=== PATIENT | male | born 1935 | race Caucasian/White ===

== ENCOUNTER 2019-07-01 05:05 | Day surgery (SDC) | payer MEDICARE, BC ==
[2019-06-30 16:40] LABS: BASOPHILS 0.4 % (0-2); EOSINOPHILS 5.6 % (0-7); HEMATOCRIT 42.2 % (42.0-54.0); IMMATURE GRANULOCYTES 0.2 % (0-5); LYMPHOCYTES 30.6 % (15-50); MCH 31.4 pg (26.0-34.0); MCHC 35.5 g/dL (31.0-37.0); MCV 88.3 fL (80.0-100.0); MEAN PLATELET VOLUME 10.6 fL (7.4-10.4); MONOCYTES 11.1 % (2-11); NEUTROPHILS 52.1 % (40-80); PLATELET COUNT 133 10x3/uL (130-400); RBC 4.78 10x6/uL (4.20-6.10); RDW 12.8 % (11.5-14.5); WBC 4.7 10x3/uL (4.8-10.8)
[2019-06-30 16:51] LABS: ANION GAP 14.8 mmol/L (8-16); CARBON DIOXIDE 25.5 mmol/L (21.0-32.0); CREATININE - SERUM 1.5 mg/dL (0.6-1.3); POTASSIUM - SERUM 4.3 mmol/L (3.5-5.1)
[~2019-07-01] VITALS: Ht 276.9 cm; Wt 90.7 kg
[~2019-07-01 05:05] MED LIST: COZAAR100 MG PO; FLOMAX0.4 MG PO; FOLIC ACID1 MG PO; NEURONTIN 300300 MG PO; NORVASC5 MG PO; OCCUVITE PO; PLAVIX75 MG PO; PROTONIX40 MG PO; THEREMS-M1 TAB PO; VITAMIN D31000 UNIT PO; ZOCOR10 MG PO; ZOLOFT50 MG PO
[2019-07-01 05:44] VITALS: BP 140/73; Ht 276.9 cm; Wt 90.7 kg
[2019-07-01] MEDS ORDERED: DURICEF500 MG PO (08:05)
[2019-07-01] MEDS ORDERED: HYDROCODON-ACE1 EAC7 PO (08:05)
--- NOTE | 2019-07-01 09:01 | NUR ---
[address] MULTIPLE FAMILY AT BEDSIDE. DR. JUAN HAS ROUNDED WITH FAMILY. COLA SERVED PER PT. REQUEST. ICE P ROVIDED. ELEVATED ON PILLOW. 0855 FL DIET SERVED.
--- NOTE | 2019-07-01 11:17 | OP ---
PATIENT NAME: DAMASO MORATAYA MEDICAL RECORD: [id number] :37 LOCATION:D.OPS ADMISSION DATE: SURGEON: HANS JUAN DO DATE OF OPERATION: 07/01/2019 PROCEDURE PERFORMED: Right endoscopic carpal tunnel release and right cubital tunnel release. 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 INDICATIONS: Mr. 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 He was having problems where he had numbness and tingling for quite some time and loss of feeling in his hand. He had a nerve conduction study, which showed very severe carpal tunnel and cubital tunnel with the ulnar nerve being pinched a little bit distal to the elbow. I informed him of the risk that we may not get the feeling back and the motor may not come back, but the pain should be resolved after the surgery. He is aware of those risks and signed the consent as well as the risks of infection, bleeding, damage to nerves and vessels, need for further surgery, continued pain and numbness. He signed the consent. SURGEON: Hans Juan DO DESCRIPTION OF PROCEDURE: The patient was taken to the operative suite, laid in supine position. I was assisted by Bryant Contreras, advanced nurse practitioner. The right upper extremity was prepped and draped in sterile fashion. The time-out was performed. Everyone was in agreement with correct side, site, patient and procedure. The Esmarch was then used to exsanguinate the right upper extremity. The tourniquet was inflated to 250 mmHg, it was up for 27 minutes. The endoscopic carpal tunnel was addressed first. A small incision was made at the wrist crease and blunt dissection was made after the initial incision with Ragnells down to the carpal tunnel. The fascia of the forearm was released from distal to proximal at that spot and then the carpal tunnel was entered with the dilators. The scope sheath was then put in and the transverse carpal ligament was seen, cleaned off with the probe and rasp and then the knife was brought in and raised up and transected the transverse carpal ligament. Pickup and scissors were then used to release any remaining fibers under loupe magnification. The cubital tunnel was then addressed. An incision was made at the elbow just posterior to the medial epicondyle. Careful dissection was made down to the incision on the skin, down to the ulnar nerve. This was dissected out both proximally and distally. It was seen to be pinched. It had an hourglass deformity noted at the head of the flexor carpi ulnaris and this was released. Once we got a good release, the tourniquet was let down. The site was injected with 0.5% Marcaine with epinephrine 10 mL there and 10 mL at the carpal tunnel site and any bleeding was coagulated with the bipolar at that time. The skin was then closed at the cubital tunnel with 3-0 Vicryl in an inverted interrupted fashion, 5-0 Monocryl ran on the skin and the carpal tunnel was closed with 5-0 Monocryl in an inverted interrupted fashion. Steri-Strips, Adaptic, 4 x 4's were then placed and cast padding was then wrapped and Wayne wrap from the fingers up to above the elbow. He was awakened and taken to recovery in stable condition. OPERATIVE REPORT [id number] DAMASO MORATAYA BLOOD LOSS: Minimal. COMPLICATIONS: None. TRANSINT:[id number] Voice Confirmation ID: [id number] DOCUMENT ID: [id number] HANS JUAN DO at 1117 CC: [id number] DICTATION DATE: 07/01/19 0803 UPSETTER HELPER: 07/01/19 1053 REG [facility] [address] [place] [address]
--- NOTE | 2019-07-01 13:25 | NUR ---
PT IS RESTING QUIETLY IN BED AT THIS TIME. DENIES PAIN/NEEDS. WILL CONTINUE TO MONITOR.
== END 2019-07-01 14:55 | disposition home or self-care (01) ==
LOC: D.OPS 05:05 → D.PAN 07:00 → D.OPS 14:15 → D.PAN 14:35 → D.OPS 14:55
PROVIDERS: Anesthesiology; ATTEND Orthopaedic Surgery
DX: G56.01 Carpal tunnel syndrome, right upper limb (principal); G56.21 Lesion of ulnar nerve, right upper limb

== ENCOUNTER → 2019-08-20 13:27 | Outpatient (CLI) | payer MEDICARE, BC ==
[2019-07-01 05:44] VITALS: BMI 11.8
[~2019-08-20 13:27] MED LIST changes: +DURICEF500 MG PO; +HYDROCODON-ACE1 EAC7 PO
== END | disposition home or self-care (01) ==
LOC: D.US 13:27
PROVIDERS: ATTEND Internal Medicine Cardiovascular Disease
DX: I65.22 Occlusion and stenosis of left carotid artery (principal)

== ENCOUNTER → 2019-10-13 12:33 | Outpatient (CLI) | payer MEDICARE, BC ==
[2019-07-01 05:44] VITALS: BMI 11.8
== END | disposition home or self-care (01) ==
LOC: D.CT 12:33
PROVIDERS: ATTEND Internal Medicine Cardiovascular Disease
DX: I25.10 Atherosclerotic heart disease of native coronary artery without angina pectoris (principal); Z86.73 Personal history of transient ischemic attack (TIA), and cerebral infarction without residual deficits

== ENCOUNTER → 2020-03-15 12:41 | Outpatient (CLI) | payer MEDICARE, BC ==
[2019-11-20 13:35] VITALS: BMI 26.2
[~2020-03-15 12:41] MED LIST changes: +ASPIRIN81 MG PO; +ULTRAM50 MG PO; +VITAMIN B12 INJ
== END | disposition home or self-care (01) ==
LOC: D.US 12:41
PROVIDERS: ATTEND Internal Medicine Cardiovascular Disease
DX: I65.23 Occlusion and stenosis of bilateral carotid arteries (principal)

== ENCOUNTER → 2021-02-15 10:27 | Outpatient (CLI) | payer MEDICARE, BC ==
[2019-11-20 13:35] VITALS: BMI 26.2
== END | disposition home or self-care (01) ==
LOC: D.US 10:27
PROVIDERS: ATTEND Internal Medicine Cardiovascular Disease
DX: I65.23 Occlusion and stenosis of bilateral carotid arteries (principal)

== ENCOUNTER 2021-04-01 16:31 | Inpatient (IN) | payer MEDICARE, BC ==
[~2021-04-01] VITALS: Ht 175.3 cm; Wt 90.9 kg
[2021-04-01 16:37] VITALS: Ht 175.3 cm; Wt 90.9 kg
[2021-04-01 17:02] LABS: BASOPHILS 0.7 % (0-2); EOSINOPHILS 3.2 % (0-7); HEMATOCRIT 40.9 % (42.0-54.0); HEMOGLOBIN 13.9 g/dL (13.5-17.5); LYMPHOCYTES 27.1 % (15-50); MCHC 33.9 g/dL (31.0-37.0); MCV 88.3 fL (80.0-100.0); MEAN PLATELET VOLUME 9.1 fL (7.4-10.4); MONOCYTES 9.6 % (2-11); NEUTROPHILS 59.4 % (40-80); PLATELET COUNT 151 10x3/uL (130-400); RBC 4.63 10x6/uL (4.20-6.10); RDW 13.8 % (11.5-14.5); WBC 4.6 10x3/uL (4.8-10.8)
[2021-04-01 17:09] LABS: CALC OSMOLALITY 292 mosm/kg (275-300); CALCIUM 9.4 mg/dL (8.5-10.1); CARBON DIOXIDE 23.4 mmol/L (21.0-32.0); CHLORIDE - SERUM 107 mmol/L (98-107); CREATININE - SERUM 2.2 mg/dL (0.6-1.3); POTASSIUM - SERUM 4.2 mmol/L (3.5-5.1); SODIUM 143 mmol/L (136-145); UREA NITROGEN 27 mg/dL (7-18); eGFR NON AFRICAN AMERICAN 30 mL/min (90-120)
[2021-04-01 17:10] LABS: GLUCOSE 156 mg/dL (74-106)
[2021-04-01 17:11] LABS: INR 1.21 (0.85-1.17); PROTIME 14.2 SECONDS (11.6-15.0)
[2021-04-01 17:26] LABS: ALBUMIN 4.3 g/dL (3.4-5.0); ALKALINE PHOSPHATASE 67 U/L (30-120); ALT (SGPT) 47 U/L (10-68); BILIRUBIN - TOTAL 0.64 mg/dL (0.2-1.3); CKMB 8.5 U/L (0.0-3.6); CREATINE KINASE 502 UL (21-232); MAGNESIUM - SERUM 2.3 mg/dL (1.8-2.4); PROTEIN - SERUM 7.5 g/dL (6.4-8.2)
[2021-04-01 17:27] LABS: TROPONIN-I < 0.017 ng/mL (0.000-0.060)
[2021-04-01 19:00] VITALS: BP 197/92
[2021-04-01 19:14] LABS: BILIRUBIN NEGATIVE (NEGATIVE); KETONE NEGATIVE mg/dL (< 1+); NITRITE NEGATIVE (NEGATIVE); PH 5.5 (5.0-8.0); UROBILINOGEN NORMAL mg/dL (< 2); WHITE CELLS - URINE 1 HPF (0-1)
[2021-04-01 19:21] LABS: UDS - AMPHET NEGATIVE QUAL (NEGATIVE); UDS - BARB NEGATIVE QUAL (NEGATIVE); UDS - BENZO NEGATIVE QUAL (NEGATIVE); UDS - COCAINE NEGATIVE QUAL (NEGATIVE); UDS - OPIATE POSITIVE QUAL (NEGATIVE); UDS - PCP NEGATIVE QUAL (NEGATIVE); UDS - THC NEGATIVE QUAL (NEGATIVE)
--- NOTE | 2021-04-01 19:27 | NUR ---
PT REPORT GIVEN TO ZAIN CARTER
[2021-04-01 21:16] VITALS: BP 193/89
[2021-04-02 00:06] VITALS: BP 135/76
[2021-04-02 01:20] LABS: CKMB 10.6 U/L (0.0-3.6); TROPONIN-I 0.043 ng/mL (0.000-0.060)
[2021-04-02 01:28] LABS: CREATINE KINASE 629 UL (21-232)
[2021-04-02 02:30] VITALS: BP 161/81
[2021-04-02 04:10] VITALS: BP 174/78
[2021-04-02 06:29] LABS: BASOPHILS 0.5 % (0-2); EOSINOPHILS 3.8 % (0-7); HEMATOCRIT 39.4 % (42.0-54.0); HEMOGLOBIN 13.2 g/dL (13.5-17.5); LYMPHOCYTES 28.2 % (15-50); MCHC 33.6 g/dL (31.0-37.0); MCV 89.1 fL (80.0-100.0); MEAN PLATELET VOLUME 8.7 fL (7.4-10.4); MONOCYTES 12.5 % (2-11); PLATELET COUNT 144 10x3/uL (130-400); RBC 4.42 10x6/uL (4.20-6.10); RDW 13.7 % (11.5-14.5); WBC 4.2 10x3/uL (4.8-10.8)
--- NOTE | 2021-04-02 07:00 | NUR ---
PATIENT AWAKE AND ALERT. STATES HE'S READY TO GO HOME. STATES "THEY TOLD ME I WOULD GO HOME AT 7:30 THIS MORNING. NO ORDER OR NOTE FOUND IN THE RECORD FOR D/C THIS MORNING.
[2021-04-02 07:57] VITALS: BP 187/87
[2021-04-02 08:08] LABS: CALC OSMOLALITY 293 mosm/kg (275-300); CALCIUM 9.2 mg/dL (8.5-10.1); CARBON DIOXIDE 26.2 mmol/L (21.0-32.0); CHLORIDE - SERUM 109 mmol/L (98-107); CKMB 9.4 U/L (0.0-3.6); CREATINE KINASE 629 UL (21-232); GLUCOSE 127 mg/dL (74-106); MAGNESIUM - SERUM 2.2 mg/dL (1.8-2.4); PHOSPHOROUS 3.3 mg/dL (2.5-4.9); SODIUM 145 mmol/L (136-145); TROPONIN-I 0.038 ng/mL (0.000-0.060); UREA NITROGEN 21 mg/dL (7-18); eGFR NON AFRICAN AMERICAN 44 mL/min (90-120)
[2021-04-02 08:12] LABS: CREATININE - SERUM 1.6 mg/dL (0.6-1.3)
--- NOTE | 2021-04-02 08:30 | NUR ---
REFUSED BREAKFAST. STATES "MY STOMACH IS JUST BAD THIS MORNING".
--- NOTE | 2021-04-02 12:30 | NUR ---
DAUGHTER HERE INSISTING ON DISCHARGE. CARLTON HAMILTON, [facility] PAGED AND NOTIFIED OF PATIENT AND DAUGHTER WANTING DISCHARGE. DISCUSSED THAT ASSISTED CONSULT NOT COMPLETED AND PATIENT NOT SEEN BY DR. MEANS. ALFONSO INFORMED THAT DR. MEANS IS NOT [employer]. ASSISTED CALLED FOR ASSESSMENT.
--- NOTE | 2021-04-02 13:00 | NUR ---
ALFONSO HERE. DISCHARGE WRITTEN.
[2021-04-02 13:36] LABS: CREATINE KINASE 713 UL (21-232); TROPONIN-I 0.035 ng/mL (0.000-0.060)
[2021-04-02 14:42] VITALS: BP 168/79
--- NOTE | 2021-04-02 15:00 | NUR ---
PATIENT DISCHARGED TO CARE OF HIS DAUGHTER.
== END 2021-04-02 16:00 | disposition home or self-care (01) | DRG 948 ==
LOC: D.ER 16:31 → D.EDHOLD 18:26
PROVIDERS: Family Medicine; ADMIT Emergency Medicine; ATTEND Emergency Medicine
DX: R41.82 Altered mental status, unspecified (principal); N17.9 Acute kidney failure, unspecified; K21.9 Gastro-esophageal reflux disease without esophagitis; I10 Essential (primary) hypertension; I25.10 Atherosclerotic heart disease of native coronary artery without angina pectoris; E78.5 Hyperlipidemia, unspecified; Z86.73 Personal history of transient ischemic attack (TIA), and cerebral infarction without residual deficits; N40.0 Benign prostatic hyperplasia without lower urinary tract symptoms; Z85.819 Personal history of malignant neoplasm of unspecified site of lip, oral cavity, and pharynx; M19.90 Unspecified osteoarthritis, unspecified site; F32.9 Major depressive disorder, single episode, unspecified; W19.XXXA Unspecified fall, initial encounter; R74.8 Abnormal levels of other serum enzymes